=== PATIENT | female | born 1960 | race Caucasian/White ===

== ENCOUNTER 2018-03-06 11:20 | Day surgery (SDC) | payer MEDICARE, MEDICAID ==
[2018-03-06] MEDS ORDERED: Marcaine 0.5% SDV 10 ML IJ ONE (11:21)
[2018-03-06] MEDS ORDERED: DIPRIVAN 200 MG/20 ML IV ONE (11:21)
[2018-03-06] MEDS ORDERED: Depo-Medrol 40 MG/ML IM ONE (11:21)
[2018-03-06] MEDS ORDERED: Lactated Ringers 1,000 ML IV ONE (14:52)
--- NOTE | 2018-03-06 14:54 | XRAY ---
Indication: Bilateral SI joint injection. Intraoperative fluoroscopy was provided for 15 seconds. 4 digital spot images submitted for interpretation demonstrates a posterior needle tip projecting over the inferior left and right SI joints. Correlate with intraoperative findings/report.
--- NOTE | 2018-03-06 14:55 | XRAY ---
15 seconds fluoroscopy time in surgery for bilateral SI joint injections.
== END 2018-03-06 13:25 | disposition home or self-care (01) ==
LOC: SDC-PAIN 11:20
PROVIDERS: ATTEND Psychiatry & Neurology Pain Medicine
DX: M46.1 Sacroiliitis, not elsewhere classified (principal)
CPT/HCPCS: 27096; 72020; 77002; J1030; J2704; G0260

== ENCOUNTER 2018-05-01 10:54 | Day surgery (SDC) | payer MEDICARE ==
[2018-05-01] MEDS ORDERED: DIPRIVAN 200 MG/20 ML IV ONE (10:55)
[2018-05-01] MEDS ORDERED: Depo-Medrol 40 MG/ML IM ONE (10:55)
[2018-05-01] MEDS ORDERED: Sodium Chloride 0.9(Preservative Free) 10 ML IJ ONE (10:55)
--- NOTE | 2018-05-01 13:37 | XRAY ---
Indication: Bilateral L4-S1 transforaminal injections. Intraoperative fluoroscopy was provided for 48 seconds. 4 digital spot images submitted for interpretation demonstrates posterior spinal needle tips projecting over the expected course of the left and right L4-L5 nerve roots. Small amount of contrast injected for needle tip placement. Correlate with intraoperative findings/report.
--- NOTE | 2018-05-01 13:40 | XRAY ---
48 seconds fluoroscopy time in surgery for bilateral L4-S1 transforaminal injections.
[2018-05-01] MEDS ORDERED: Lactated Ringers 1,000 ML IV ONE (15:01)
== END 2018-05-01 13:02 | disposition home or self-care (01) ==
LOC: SDC-PAIN 10:54
PROVIDERS: ATTEND Psychiatry & Neurology Pain Medicine
DX: M54.16 Radiculopathy, lumbar region (principal); M54.6 Pain in thoracic spine; J44.9 Chronic obstructive pulmonary disease, unspecified; K21.9 Gastro-esophageal reflux disease without esophagitis; Z79.899 Other long term (current) drug therapy
CPT/HCPCS: 72020; 77003; J1030; J2704

== ENCOUNTER 2018-05-13 12:18 | Emergency (ER) | payer MEDICARE ==
[2018-05-13] MEDS ORDERED: BACIGUENT PACKET TP ONE (13:16)
[2018-05-13] MEDS ORDERED: BACTRIM DS TABLET PO ONE ×2 (13:17→13:36)
--- NOTE | 2018-05-13 13:23 | ERPHSYRPT ---
- History of Present Illness Time Seen by Provider: 05/13/18 13:17 Source: patient Exam Limitations: no limitations Patient Subjective Stated Complaint: Pt states "I hurt my foot a couple weeks ago and It is still hurting. I was over at pain management and he said I should go get it checked out and since I am here i thought I would come to the emergency department." Triage Nursing Assessment: Pt alert and oriented X 3, skin pwd Pt ambulates with a cane. Pt was ambulating with a limp without useing the cane to room 9. PT has small wound approx 1 cm x 1 cm to lateral left foot, no bleeding, no redness, no swelling noted. Also no drainaige noted. Physician History: 58-year-old white female with history of COPD, GERD, pancreatitis, arthritis, fibromyalgia, anxiety, depression. Patient arrives with complaint of pain on the left lateral foot at the fifth metacarpal phalangeal joint symptoms for 2 weeks. Patient states she scraped the area 2 weeks ago she has been having pain in the area. She states that she was seen and pain control clinic and they recommended she come to the emergency room. Past medical history includes COPD, GERD, pancreatitis, arthritis, fibromyalgia , anxiety, depression. Past surgical history includes tonsillectomy and cholecystectomy Method of Injury: other (scraped her foot 2 weeks) Occurred: other (2 weeks ago) Quality: constant Severity of Pain-Max: moderate Severity of Pain-Current: mild Lower Extremities Pain: foot: left Modifying Factors: Improves With: nothing Associated Symptoms: none Allergies/Adverse Reactions: codeine Allergy (Verified 08/07/17 14:35) Penicillins Allergy (Verified 08/07/17 14:35) Home Medications: Albuterol 2.5 mg/3 ml Neb [Proventil 2.5 mg/3 ml Neb] 2.5 mg IH Q4-6HPRN PRN 08/07/17 [History] Celecoxib [Celebrex] 200 mg PO DAILY 08/07/17 [History] Gabapentin 300 mg PO DAILY 08/07/17 [History] Amitriptyline HCl 75 mg PO DAILY 05/13/18 [History] Clonazepam 0.5 mg [Klonopin 0.5 MG] 0.5 mg PO DAILY 05/13/18 [History] Methocarbamol 500 mg [Robaxin 500 MG] 500 mg PO DAILY 05/13/18 [History] Omeprazole 20 mg PO DAILY 05/13/18 [History] Topiramate 25 mg [Topamax 25 MG] 25 mg PO BID 05/13/18 [History] Hx Tetanus, Diphtheria Vaccination/Date Given: No Hx Influenza Vaccination/Date Given: Yes Hx Pneumococcal Vaccination/Date Given: Yes Immunizations Up to Date: Yes - Review of Systems Constitutional: No Fever, No Chills Eyes: No Symptoms Ears, Nose, & Throat: No Symptoms Respiratory: No Cough, No Dyspnea Cardiac: No Chest Pain, No Edema, No Syncope Abdominal/Gastrointestinal: No Abdominal Pain, No Nausea, No Vomiting, No Diarrhea Genitourinary Symptoms: No Dysuria Musculoskeletal: Other (pain left distal lateral foot) Skin: Other (scraped her foot left distal lateral foot at the MTP joint), No Rash Neurological: No Dizziness, No Focal Weakness, No Sensory Changes Psychological: No Symptoms Endocrine: No Symptoms All Other Systems: Reviewed and Negative - Past Medical History Pertinent Past Medical History: Yes Neurological History: No Pertinent History ENT History: No Pertinent History Cardiac History: No Pertinent History Respiratory History: COPD Endocrine Medical History: No Pertinent History Musculoskeletal History: Arthritis, Fibromyalgia GI Medical History: GERD, Pancreatitis History: No Pertinent History Psycho-Social History: Anxiety, Depression Female Reproductive Disorders: No Pertinent History - Past Surgical History Past Surgical History: Yes Other Surgical History: tonsils. hysterectomy. desi - Social History Smoking Status: Current every day smoker How long have you smoked: years Exposure to second hand smoke: Yes Drug Use: none Patient Lives Alone: No - Female History Hx Last Menstrual Period: hysterectomy Hx Now: No - Nursing Vital Signs Nursing Vital Signs: Initial Vital Signs Temperature 97.9 F 05/13/18 12:22 Pulse Rate 86 05/13/18 12:22 Respiratory Rate 16 05/13/18 12:22 Blood Pressure 158/94 05/13/18 12:22 O2 Sat by Pulse Oximetry 97 05/13/18 12:22 Pain Scale Pain Intensity 7 - Physical Exam General Appearance: mild distress Eyes, Ears, Nose, Throat Exam: moist mucous membranes Neck Exam: non-tender, supple Cardiovascular/Respiratory Exam: chest non-tender, normal breath sounds, regular rate/rhythm, no respiratory distress Gastrointestinal/Abdominal Exam: non-tender, guarding Back Exam: normal inspection, No vertebral tenderness Hips Exam: bilateral: non-tender, normal inspection, normal range of motion, no evidence of injury Legs Exam: bilateral leg: non-tender, normal inspection, normal range of motion , no evidence of injury Knees Exam: bilateral knee: non-tender, normal inspection, normal range of motion, no evidence of injury Ankle Exam: bilateral ankle: non-tender, normal inspection, normal range of motion, no evidence of injury Foot Exam: right foot: non-tender, no evidence of injury, left foot: other ( small eschar approximately 2 mm with tenderness left lateral foot at MTP joint) , bilateral foot: normal inspection, normal range of motion DTR - Lower Extremities Exam: ankle (R): 2+, ankle (L): 2+ Neuro/Tendon Exam: normal sensation, normal motor functions Mental Status Exam: alert, oriented x 3, cooperative Skin Exam: normal color, warm, dry SpO2 Interpretation: normal (97%) SpO2: 97 - Course Nursing assessment & vital signs reviewed: Yes Ordered Tests: Active Orders 24 hr Category Date Time Status Wound Care STAT Care 05/13/18 13:16 Active Medication Summary Generic Name Dose Route Start Last Admin Trade Name Freq PRN Reason Stop Dose Admin Trimethoprim/Sulfamethoxazole 1 tab 05/13/18 13:17 Bactrim Ds Tablet PO 05/13/18 13:18 STAT ONE Discontinued Medications Generic Name Dose Route Start Last Admin Trade Name Freq PRN Reason Stop Dose Admin Bacitracin Zinc 0.9 gm 05/13/18 13:16 Baciguent Packet TP 05/13/18 13:17 STAT ONE - Progress Progress: improved Progress Note: 05/13/18 13:21 58-year-old white female arrives with complaint of pain in her left dorsal foot laterally overlying the MTP joint symptoms for 2 weeks she states she scraped area 2 weeks ago. She apparently had been seen in pain control clinic and recommended come to the emergency room. On physical examination I really don't see any abscess she has a small eschar on the lateral foot at the level of the MTP joint which is tender. 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 . - Departure Time of Disposition: 13:22 Departure Disposition: Home Clinical Impression: Left foot pain, Abrasion, left foot, initial encounter Condition: Fair Critical Care Time: No Referrals: CATERINA JOHNSTON [Primary Care Provider] - Additional Instructions: Return home. Bacitracin to area daily until healed. Bactrim DS one orally twice a day for 10 days. Follow-up with your family doctor if symptoms are worse, no better in 48 hours, or persist longer than one week. Return for acute distress or for severe symptoms. Pain medications as prescribed by your pain nuisance animal damage control agent. Prescriptions: Smz/Tmp Ds Tablet [Bactrim Ds Tablet] 1 tab PO BID #20 tablet
[2018-05-13] MEDS ORDERED: BACIGUENT PACKET ONE (13:35)
[2018-05-13 13:43] VITALS: BP 152/90; PULSE 80; O2SAT 98
== END 2018-05-13 13:47 | disposition home or self-care (01) ==
LOC: ED 12:18
DX: M79.672 Pain in left foot (principal); S90.812A Abrasion, left foot, initial encounter; J44.9 Chronic obstructive pulmonary disease, unspecified; F41.9 Anxiety disorder, unspecified; F32.9 Major depressive disorder, single episode, unspecified; M19.90 Unspecified osteoarthritis, unspecified site; M79.7 Fibromyalgia; K21.9 Gastro-esophageal reflux disease without esophagitis; Z79.899 Other long term (current) drug therapy
CPT/HCPCS: 36000; 99284; A9270-GY

== ENCOUNTER 2019-03-26 13:11 | Day surgery (SDC) | payer MEDICARE ==
[2019-03-26] MEDS ORDERED: Marcaine 0.5% SDV 10 ML IJ ONE (13:12)
[2019-03-26] MEDS ORDERED: Depo-Medrol 40 MG/ML IM ONE (13:12)
[2019-03-26] MEDS ORDERED: Ketamine HCl 50 MG/ML ONE (13:47)
[2019-03-26] MEDS ORDERED: DIPRIVAN 200 MG/20 ML IV ONE (13:47)
--- NOTE | 2019-03-26 15:42 | XRAY ---
21 seconds fluoroscopy time in surgery for left knee injection.
--- NOTE | 2019-03-26 15:42 | XRAY ---
8 seconds fluoroscopy time in surgery for right knee injection.
--- NOTE | 2019-03-26 15:43 | XRAY ---
Indication: Right hip injection. Intraoperative fluoroscopy was provided for 8 seconds. Single digital spot image submitted for interpretation demonstrate needle tip adjacent to the right femur head. Small amount of contrast injected for needle tip placement. Correlate with intraoperative findings/report.
--- NOTE | 2019-03-26 15:52 | XRAY ---
Indication: Left hip injection. Intraoperative fluoroscopy was provided for 21 seconds. Single digital spot image submitted for interpretation demonstrate needle tip adjacent to the left femur head. Small amount of contrast injected for needle tip placement. Correlate with intraoperative findings/report.
[2019-03-26] MEDS ORDERED: Lactated Ringers 1,000 ML IV ONE (15:56)
== END 2019-03-26 14:16 | disposition home or self-care (01) ==
LOC: SDC-PAIN 13:11
PROVIDERS: ATTEND Psychiatry & Neurology Pain Medicine
DX: M16.0 Bilateral primary osteoarthritis of hip (principal); J44.9 Chronic obstructive pulmonary disease, unspecified; K21.9 Gastro-esophageal reflux disease without esophagitis; Z79.899 Other long term (current) drug therapy
CPT/HCPCS: 20610; 73501; 77002; J1030; J1642; J2704; Q9966

== ENCOUNTER 2019-05-28 11:18 | Day surgery (SDC) | payer MEDICARE ==
[2019-05-28] MEDS ORDERED: Depo-Medrol 40 MG/ML IM ONE (11:19)
[2019-05-28] MEDS ORDERED: Marcaine 0.5% SDV 10 ML IM ONE (11:19)
[2019-05-28] MEDS ORDERED: DIPRIVAN 200 MG/20 ML IV ONE (12:16)
[2019-05-28] MEDS ORDERED: Ketamine HCl 50 MG/ML ONE (12:16)
--- NOTE | 2019-05-28 13:39 | XRAY ---
14 seconds of fluoroscopy was used in surgery for a bilateral SI joint injection.
--- NOTE | 2019-05-28 14:17 | XRAY ---
Indication: Bilateral SI joint injection. Intraoperative fluoroscopy was provided for 14 seconds. 4 digital spot images submitted for interpretation demonstrates posterior needle tip projecting over the inferior left and right SI joints. Correlate with intraoperative findings/report. Incidental partially visualized left iliac stent grafts.
[2019-05-28] MEDS ORDERED: Lactated Ringers 1,000 ML IV ONE (14:45)
== END 2019-05-28 12:45 | disposition home or self-care (01) ==
LOC: SDC-PAIN 11:18
PROVIDERS: ATTEND Psychiatry & Neurology Pain Medicine
DX: M46.1 Sacroiliitis, not elsewhere classified (principal); J44.9 Chronic obstructive pulmonary disease, unspecified; K21.9 Gastro-esophageal reflux disease without esophagitis; F41.8 Other specified anxiety disorders; Z79.899 Other long term (current) drug therapy
CPT/HCPCS: 27096; 72202; 77002; J1030; J1642; J2704; G0260

== ENCOUNTER 2019-07-23 12:19 | Day surgery (SDC) | payer MEDICARE ==
[2019-07-23] MEDS ORDERED: Sodium Chloride 0.9(Preservative Free) 10 ML IJ ONE (12:20)
[2019-07-23] MEDS ORDERED: Depo-Medrol 40 MG/ML IM ONE (12:20)
[2019-07-23] MEDS ORDERED: Lactated Ringers 1,000 ML IV ONE (13:51)
[2019-07-23] MEDS ORDERED: Ketamine HCl 50 MG/ML ONE (13:57)
[2019-07-23] MEDS ORDERED: DIPRIVAN 200 MG/20 ML IV ONE (13:57)
--- NOTE | 2019-07-23 14:48 | XRAY ---
Indication: Right L4-S1 JACKIE. Intraoperative fluoroscopy was provided for 32 seconds. 4 digital spot images submitted for interpretation demonstrates posterior needle tips projecting over the expected course of the right L4 and L5 nerve roots. Small amount of contrast injected for needle tip placement. Correlate with intraoperative findings/report. Incidental partially visualized left iliac artery stent graft.
--- NOTE | 2019-07-23 15:06 | XRAY ---
32 seconds fluoroscopy time in surgery for right L4-S1 transforaminal JACKIE.
== END 2019-07-23 14:27 | disposition home or self-care (01) ==
LOC: SDC-PAIN 12:19
PROVIDERS: ATTEND Psychiatry & Neurology Pain Medicine
DX: M54.16 Radiculopathy, lumbar region (principal); J44.9 Chronic obstructive pulmonary disease, unspecified; K21.9 Gastro-esophageal reflux disease without esophagitis; Z79.899 Other long term (current) drug therapy
CPT/HCPCS: 64483; 64484; 72100; 77003; J1030; J1642; J2704; Q9966

== ENCOUNTER 2020-09-08 11:08 | Day surgery (SDC) | payer MEDICARE ==
[2020-09-08] MEDS ORDERED: LIDOCAINE HCL 2% 100 MG/5 ML IJ ONE (11:09)
[2020-09-08] MEDS ORDERED: Decadron 4 MG INJ IV ONE (11:09)
[2020-09-08] MEDS ORDERED: DIPRIVAN 200 MG/20 ML IV ONE (12:53)
[2020-09-08] MEDS ORDERED: Lactated Ringers 1,000 ML IV ONE (16:29)
--- NOTE | 2020-09-09 11:34 | XRAY ---
32 seconds fluoroscopy time in surgery for left C2-C4 MBB.
== END 2020-09-08 13:47 | disposition home or self-care (01) ==
LOC: SDC-PAIN 11:08
PROVIDERS: ATTEND Psychiatry & Neurology Pain Medicine
DX: M47.812 Spondylosis without myelopathy or radiculopathy, cervical region (principal); F41.9 Anxiety disorder, unspecified; F32.9 Major depressive disorder, single episode, unspecified; I73.9 Peripheral vascular disease, unspecified; N18.9 Chronic kidney disease, unspecified; J44.9 Chronic obstructive pulmonary disease, unspecified; K21.9 Gastro-esophageal reflux disease without esophagitis; Z79.899 Other long term (current) drug therapy
CPT/HCPCS: 64490; 64491; 72040; 77002; J1100; J1642; J2704